=== PATIENT | female | born 1960 | race Caucasian/White ===

== ENCOUNTER → 2017-01-04 16:52 | Outpatient (CLI) | payer MEDICARE | END | disposition home or self-care (01) | LOC: D.MAMMO 13:45 | DX: Z12.31 Encounter for screening mammogram for malignant neoplasm of breast (principal) ==

== ENCOUNTER → 2017-01-26 12:41 | Outpatient (CLI) | payer MEDICARE | END | disposition home or self-care (01) | LOC: D.MAMMO 08:30 | DX: R92.8 Other abnormal and inconclusive findings on diagnostic imaging of breast (principal) ==

== ENCOUNTER → 2017-02-09 10:28 | Outpatient (CLI) | payer MEDICARE | END | disposition home or self-care (01) | LOC: D.US 10:28 | DX: R92.8 Other abnormal and inconclusive findings on diagnostic imaging of breast (principal) ==

== ENCOUNTER → 2018-12-11 13:26 | Outpatient (CLI) | payer MEDICARE ==
[~2018-12-11 13:26] MED LIST: DICLOFENAC SODI50 MG PO; EFFEXOR XR150 MG PO; HCTZ PO; HYDROCODON-ACE1 EA10 PO; KEPPRA500 MG PO; KLONOPIN0.5 MG PO; LAMICTAL150 M1 PO; NEURONTIN 300300 MG PO; VALSART PO; VOLTAREN100 GM TOPICAL; ZANAFLEX4 MG PO; [UNRECOGNIZED DRUG - OTHER] PO
[2019-01-03 08:00] VITALS: BMI 32.0
== END | disposition home or self-care (01) ==
LOC: D.MRI 13:26
PROVIDERS: ATTEND Orthopaedic Surgery
DX: S83.231A Complex tear of medial meniscus, current injury, right knee, initial encounter (principal)

== ENCOUNTER 2019-01-03 06:53 | Day surgery (SDC) | payer MEDICARE ==
[2019-01-02 09:51] LABS: HEMATOCRIT 41.2 % (36.0-48.0); HEMOGLOBIN 13.4 g/dL (12-16); MCH 30.7 pg (26.0-34.0); MCHC 32.5 g/dL (31.0-37.0); MCV 94.3 fL (80.0-100.0); MEAN PLATELET VOLUME 9.9 fL (7.4-10.4); RBC 4.37 10x6/uL (4.00-5.40); RDW 12.5 % (11.5-14.5)
[~2019-01-03] VITALS: Ht 165.1 cm; Wt 87.1 kg
[2019-01-03 08:00] VITALS: BP 130/82; Ht 165.1 cm; Wt 87.1 kg
[2019-01-03] MEDS ORDERED: HYDROCODON-ACE1 EA10 PO (09:54)
--- NOTE | 2019-01-03 11:13 | NUR ---
DR BARRERA NOTIFIED AND REVIEWED PT'S BEHAVIOR AND ASSESSMENT RESULTS. PT IS A LOW RISK PER DR BARRERA. DR BARRERA STATED TO GIVE RESOURCES TO PT AT TIME OF DISCHARGE. NO FURTHER ORDERS AT THIS TIME. RESOURCES REVIEWED WITH PT AND SHE VERBALIZED UNDERSTANDING.
--- NOTE | 2019-01-07 09:18 | OP ---
PATIENT NAME: DARBY LOVING MEDICAL RECORD: [id number] :58 LOCATION:[facility] ADMISSION DATE: SURGEON: TALIA CLARK MD DATE OF OPERATION: 01/03/2019 PREOPERATIVE DIAGNOSIS: Medial meniscus tear of the right knee. 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 PROCEDURES: 1. Arthroscopic partial medial meniscectomy. 2. Chondroplasty. 3. Synovectomy. SURGEON: Talia Clark MD P[employer]MAN [employer] REPAIRER: Axel Dasilva. INTRAOPERATIVE COMPLICATIONS: None. SUMMARY OF PATHOLOGIC FINDINGS: Consistent with preoperative MRI, the had a complex tear of the posterior horn of the medial meniscus along with grade II and III chondromalacia of both the patella as well as the medial femoral condyle, significant synovitis was noted. This was taken down. OPERATIVE SUMMARY IN DETAIL: After obtaining the appropriate preoperative orthopedic surgery consent as well as anesthetic consultation, evaluation and clearance, the patient was brought to the operating room and placed on the operating table in a supine position. After general laryngeal mask airway was administered, tourniquet was placed on the proximal aspect of the right lower extremity. Right lower extremity was prepped and draped in usual sterile fashion. After the appropriate time out, leg was elevated and exsanguinated, tourniquet was inflated to 350 mmHg. Routine inferolateral portal was established followed by superomedial portal and inferomedial portal. Diagnostic arthroscopy showed the patient to have the above-mentioned findings. Attention was first turned to the menisci. A combination of a full radius resector as well as a meniscotome was utilized to debride the meniscus back to stable meniscal elements and then gentle chondroplasty of the medial femoral condyle was performed along with chondroplasty of the subsurface of the patella. The patient did have some patellar osteophytes that were gently removed with a shaver. Having completed this, the knee was insufflated with 30 cc of 0.25% Marcaine with epinephrine and 80 mg of Depo-Medrol. Arthroscopy portals were closed in routine interrupted fashion using 4-0 Prolene. Sterile dressings were applied. The patient was awakened and taken to recovery room in stable condition. All final needle and sponge counts were correct. TRANSINT:[id number] Voice Confirmation ID: [id number] DOCUMENT ID: [id number] OPERATIVE REPORT [id number] DARBY LOVING MD, TALIA HAN at 0918 CC: [id number] DICTATION DATE: 01/03/19 0957 [employer]OCIATE FINANCIAL ADVISOR: 01/03/19 1123 [facility] 01/03/19 [place] [id number] [place] [id number]
== END 2019-01-03 11:40 | disposition home or self-care (01) ==
LOC: D.OPS 06:53 → D.PAN 09:30 → D.OPS 09:30
PROVIDERS: Anesthesiology; ATTEND Orthopaedic Surgery
DX: S83.241A Other tear of medial meniscus, current injury, right knee, initial encounter (principal); X58.XXXA Exposure to other specified factors, initial encounter

== ENCOUNTER 2019-07-22 19:00 | Outpatient (CLI) | payer MEDICARE ==
[2019-01-03 08:00] VITALS: BMI 32.0
== END 2019-07-22 23:59 | disposition home or self-care (01) ==
LOC: D.MAMMO 19:00
PROVIDERS: ATTEND Nurse Practitioner Family
DX: Z12.31 Encounter for screening mammogram for malignant neoplasm of breast (principal)